=== PATIENT | male | born 1980 | race Caucasian/White ===

== ENCOUNTER 2022-11-13 00:58 | Emergency (ER) | payer OTHER ==
[~2022-11-13] VITALS: Ht 177.8 cm; Wt 72.7 kg
[2022-11-13 01:00] VITALS: BP 129/80
--- NOTE | 2022-11-13 01:08 | ED Cardiac General ---
History of Present Illness General Chief Complaint: Chest Pain Stated Complaint: CHEST PAIN Source: patient, police, EMS Exam Limitations: no limitations History of Present Illness Date Seen by Provider: November 13, 2022 Time Seen by Provider: 00:58 Initial Comments 42-year-old male with past medical history of cannabis use disorder coming in via EMS from the [facility] due to chest pain. The pain started several hours ago, right side of his chest, radiates down his arm. He has been having this going more than 10 years off and on. He has been seen in the emergency department and cleared before. He states smoking marijuana normally helps with the pain, but he does not have access to correction. Denies any nausea, vomiting, diarrhea, fever, chills, prior history of cardiac disease, prior history of DVT or PE, no lower extremity swelling or pain, fever, or any other concerns. EMS did an EKG showing no acute ischemic changes and they gave full dose aspirin. Allergies and Home Medications Allergies Coded Allergies: No Known Drug Allergies (Unverified , 11/13/22) Patient Home Medication List Home Medication List Reviewed: Yes Review of Systems Review of Systems Constitutional: No fever EENTM: No Symptoms Reported Respiratory: No Symptoms Reported Cardiovascular: See HPI Gastrointestinal: No Symptoms Reported Genitourinary: No Symptoms Reported Musculoskeletal: no symptoms reported Skin: no symptoms reported Psychiatric/Neurological: No Symptoms Reported Endocrine: No Symptoms Reported Hematologic/Lymphatic: No Symptoms Reported Past Ykvzexd-[id number]-[id number] Hx Patient Social History Substance use?: Yes Substance type: Marijuana Physical Exam Vital Signs Vital Signs - First Documented 11/13/22 01:00 Temp 36.7 Pulse 53 Resp 16 B/P (MAP) 129/80 (96) Capillary Refill : Height, Weight, BMI Height: '" Weight: lbs. oz. kg; BMI Method: General Appearance: WD/WN, Anxious HEENT: PERRL/EOMI, Normal ENT Inspection, Pharynx Normal Neck: Full Range of Motion, Normal Inspection, Non Tender, Supple Respiratory: Chest Non Tender, Lungs Clear, Normal Breath Sounds, No Accessory Muscle Use, No Respiratory Distress Cardiovascular: Regular Rate, Rhythm, No Edema, Normal Peripheral Pulses Gastrointestinal: Normal Bowel Sounds, Non Tender, Soft; No Distended, No Guarding Extremity: Normal Capillary Refill, Normal Inspection, Normal Range of Motion, Non Tender, No Calf Tenderness, No Pedal Edema Neurologic/Psychiatric: Alert, No Motor/Sensory Deficits, Normal Mood/Affect Skin: Normal Color, Warm/Dry Progress/Results/Core Measures Results/Orders Lab Results Laboratory Tests Test 11/13/22 01:05 11/13/22 01:30 Range/Units White Blood Count 9.5 4.3-11.0 10^3/uL Red Blood Count 4.71 4.30-5.52 10^6/uL Hemoglobin 15.0 13.3-17.7 g/dL Hematocrit 43 40-54 % Mean Corpuscular Volume 92 80-99 fL Mean Corpuscular Hemoglobin 32 25-34 pg Mean Corpuscular Hemoglobin Concent 35 32-36 g/dL Red Cell Distribution Width 13.3 10.0-14.5 % Platelet Count 186 130-400 10^3/uL Mean Platelet Volume 11.0 9.0-12.2 fL Immature Granulocyte % (Auto) 1 % Neutrophils (%) (Auto) 71 42-75 % Lymphocytes (%) (Auto) 22 12-44 % Monocytes (%) (Auto) 6 0-12 % Eosinophils (%) (Auto) 1 0-10 % Basophils (%) (Auto) 0 0-10 % Neutrophils # (Auto) 6.7 1.8-7.8 10^3/uL Lymphocytes # (Auto) 2.0 1.0-4.0 10^3/uL Monocytes # (Auto) 0.6 0.0-1.0 10^3/uL Eosinophils # (Auto) 0.1 0.0-0.3 10^3/uL Basophils # (Auto) 0.0 0.0-0.1 10^3/uL Immature Granulocyte # (Auto) 0.1 0.0-0.1 10^3/uL Prothrombin Time 13.4 12.2-14.7 SEC INR Comment 1.0 0.8-1.4 Activated Partial Thromboplast Time 27 24-35 SEC Sodium Level 138 135-145 MMOL/L Potassium Level 3.7 3.6-5.0 MMOL/L Chloride Level 103 98-107 MMOL/L Carbon Dioxide Level 25 21-32 MMOL/L Anion Gap 10 5-14 MMOL/L Blood Urea Nitrogen 13 7-18 MG/DL Creatinine 0.81 0.60-1.30 MG/DL Estimat Glomerular Filtration Rate 114 BUN/Creatinine Ratio 16 Glucose Level 109 H 70-105 MG/DL Calcium Level 9.2 8.5-10.1 MG/DL Corrected Calcium 9.2 8.5-10.1 MG/DL Magnesium Level 1.9 1.6-2.4 MG/DL Total Bilirubin 0.4 0.1-1.0 MG/DL Aspartate Amino Transf (AST/SGOT) 14 5-34 U/L Alanine Aminotransferase (ALT/SGPT) 11 0-55 U/L Alkaline Phosphatase 78 40-136 U/L Troponin I < 0.30 <0.30 NG/ML Total Protein 6.7 6.4-8.2 GM/DL Albumin 4.0 3.2-4.5 GM/DL Lipase 15 8-78 U/L My Orders Orders - ROSELINE MORENO MD Ekg Tracing (11/13/22 01:03) Cbc With Automated Diff (11/13/22 01:04) Magnesium (11/13/22 01:04) Chest 1 View Ap/Pa Only (11/13/22 01:04) Ekg Tracing (11/13/22 01:04) Comprehensive Metabolic Panel (11/13/22 01:04) Protime With Inr (11/13/22 01:04) Partial Thromboplastin Time (11/13/22 01:04) O2 (11/13/22 01:04) Monitor-Rhythm Ecg Trace Only (11/13/22 01:04) Ed Iv/Invasive Line Start (11/13/22 01:04) Lipase (11/13/22 01:04) Troponin I Fs (11/13/22 01:04) Lidocaine 2% Viscous 15 Ml (Xylocaine Vi (11/13/22 01:15) Antacid Suspension (Mylanta Suspension (11/13/22 01:15) Aspirin Chewable Tablet (Baby Aspirin Ch (11/13/22 01:15) Droperidol Inj (Ed Only) (Inapsine Inj ( (11/13/22 01:15) Medications Given in ED Current Medications Medications Dose Ordered Sig/Soha Route Start Time Stop Time Status Last Admin Dose Admin Al Hydrox/Mg Hydrox/Simethicone 30 ml ONCE ONCE PO 11/13/22 01:15 11/13/22 01:16 DC 11/13/22 01:16 30 ML Droperidol 1.25 mg ONCE ONCE IV 11/13/22 01:15 11/13/22 01:16 DC 11/13/22 01:17 1.25 MG Lidocaine HCl 15 ml ONCE ONCE PO 11/13/22 01:15 11/13/22 01:16 DC 11/13/22 01:16 15 ML Vital Signs/I&O 11/13/22 01:00 Temp 36.7 Pulse 53 Resp 16 B/P (MAP) 129/80 (96) Progress Progress Note : Progress Note 42-year-old male with above history coming in due to chest pain. ABCs were intact and vitals were stable on presentation. Physical exam reassuring with no focal abnormalities. Specifically, he has no clinical signs of a DVT. He is low risk for PE per Henley criteria and is PERC negative. An IV was placed and basic labs were obtained and were significant for negative troponin, normal creatinine, normal white blood cell count. EKG ordered and interpreted by me showing no acute ischemic changes. Chest x-ray ordered and interpreted by me showing no pneumothorax, no pneumonia, normal cardiac silhouette. Clinically not consistent with ACS after his evaluation. I believe he is stable for discharge with outpatient follow-up. He was sent home with strict return precautions. Initial ECG Impression Date: November 13, 2022 Initial ECG Impression Time: 01:08 Initial ECG Rate: 51 Initial ECG Rhythm: S.Martin Comment Narrow QRS, normal axis, no significant ST changes or T wave abnormalities Diagnostic Imaging Diagonstic Imaging: Xray Plain Films/CT/US/NM/MRI: chest Comments No obvious pneumonia, pneumothorax, and normal cardiac silhouette Departure Impression Primary Impression: Chest pain Qualified Codes: R07.82 - Intercostal pain Disposition: 01 HOME, SELF-CARE Condition: Stable Departure-Patient Inst. Decision time for Depature: 02:12 Patient Instructions: Chest Pain That Is Not Caused by the Heart (DC) Add. Discharge Instructions: Please follow-up with your regular doctor. If you have continued chest pain, it would be good to have follow-up with a traffic signal mechanic as well. ROSELINE MORENO MD November 13, 2022 01:08
[2022-11-13] MEDS ORDERED: DROPERIDOL 5 MG/2 ML (INAPSINE) ED ONLY! IV ONE (01:15)
[2022-11-13] MEDS ORDERED: ANTACID SUSP 30 ML UDC (MYLANTA) PO ONE (01:15)
[2022-11-13] MEDS ORDERED: ASPIRIN 81 MG CHEW (CHILDREN'S ASA) PO ONE (01:15)
[2022-11-13] MEDS ORDERED: LIDOCAINE 2% VISCOUS 15 ML UDC PO ONE (01:15)
[2022-11-13 01:20] LABS: BASOPHILS % (AUTO) 0 % (0-10); EOSINOPHILS # (AUTO) 0.1 10^3/uL (0.0-0.3); EOSINOPHILS % (AUTO) 1 % (0-10); HEMATOCRIT 43 % (40-54); LYMPHOCYTES % (AUTO) 22 % (12-44); MEAN CORPUSCULAR HEMOGLOBIN 32 pg (25-34); MEAN CORPUSCULAR HGB CONC 35 g/dL (32-36); MEAN CORPUSCULAR VOLUME 92 fL (80-99); MONOCYTES # (AUTO) 0.6 10^3/uL (0.0-1.0); MONOCYTES % (AUTO) 6 % (0-12); NEUTROPHILS # (AUTO) 6.7 10^3/uL (1.8-7.8); NEUTROPHILS % (AUTO) 71 % (42-75); PLATELET COUNT 186 10^3/uL (130-400); WHITE BLOOD COUNT 9.5 10^3/uL (4.3-11.0)
[2022-11-13 02:03] LABS: CALCIUM 9.2 MG/DL (8.5-10.1); CREATININE SERUM 0.81 MG/DL (0.60-1.30); MAGNESIUM 1.9 MG/DL (1.6-2.4); POTASSIUM 3.7 MMOL/L (3.6-5.0)
[2022-11-13 02:04] LABS: BILIRUBIN,TOTAL 0.4 MG/DL (0.1-1.0); TOTAL PROTEIN 6.7 GM/DL (6.4-8.2)
[2022-11-13 02:06] LABS: PROTHROMBIN TIME PATIENT 13.4 SEC (12.2-14.7)
--- NOTE | 2022-11-13 07:29 | Diagnostic Imaging Report ---
EXAMINATION: Chest radiograph, portable AP view. DATE: 11/13/2022 1:27 AM INDICATION: 42-year-old male, chest pain. COMPARISON: None. FINDINGS: Heart size and mediastinal contours are unremarkable. There is no identified pneumothorax. There is no large pleural effusion. There is no identified focal airspace consolidation. There is an ossification near the left axillary pouch likely reflecting a large ossified intra-articular body. There is at least moderate joint space loss of the left glenohumeral joint. IMPRESSION: 1. No identified acute cardiopulmonary abnormality. 2. Advanced left glenohumeral arthritis with probable large ossified intra-articular body in axillary recess. Dictated by: Dictated on workstation # [id number]
== END 2022-11-13 02:18 | disposition home or self-care (01) ==
LOC: ER FS 01:03
DX: R07.9 Chest pain, unspecified (principal)
CPT/HCPCS: 36415; 71045; 80053; 83690; 83735; 84484; 85025; 85610; 85730; 93005; 93041